=== PATIENT | male | born 1980 | race Caucasian/White ===

== ENCOUNTER → 2016-09-14 | Outpatient (REF) | payer OTHER | LOC: M LAB REF 11:59 | PROVIDERS: ATTEND Physician Assistant Medical | DX: J02.9 Acute pharyngitis, unspecified (principal) ==

== ENCOUNTER → 2017-01-15 | Outpatient (REF) | payer OTHER | LOC: M LAB REF 12:06 | PROVIDERS: ATTEND Family Medicine | DX: E78.5 Hyperlipidemia, unspecified (principal) ==

== ENCOUNTER → 2018-03-18 | Outpatient (REF) | payer OTHER ==
[2018-03-18 19:50] LABS: LIPASE 805 U/L (73-393)
[2018-03-18 19:50] LABS: AMYLASE 113 U/L (25-115)
== END ==
LOC: M LAB REF 17:43
DX: K85.90 Acute pancreatitis without necrosis or infection, unspecified (principal)

== ENCOUNTER 2019-12-07 08:50 | Emergency (ER) | payer OTHER ==
[~2019-12-07] VITALS: Ht 177.8 cm; Wt 130.7 kg
[2019-12-07] MEDS ORDERED: LEVO137T2 (08:57)
[2019-12-07] MEDS ORDERED: NS 1,000 ML IV ONE (09:30)
[2019-12-07] MEDS ORDERED: KETOROLAC 30 MG/ML 1ML VIAL IV ONE (09:30)
[2019-12-07 10:04] LABS: BASO # 0.1 10^3/uL (0.0-0.2); BASO % 0.4 % (0.0-1.0); EOS # 0.2 10^3/uL (0.0-0.5); EOS % 1.2 % (0.0-3.0); HEMATOCRIT 42.4 % (42.0-52.0); HEMOGLOBIN 13.8 g/dl (13.5-17.5); LYMPH # 1.3 10^3/uL (1.5-5.0); MEAN CORPUSCULAR HEMOGLOBIN 30.3 pg (27.0-33.0); MEAN CORPUSCULAR HGB CONC 32.5 g/dl (32.0-36.5); MONO # 1.2 10^3/uL (0.0-0.8); MONO % 8.9 % (0.0-5.0); NEUTROPHILS % 79.3 % (36.0-66.0); PLATELET COUNT, AUTOMATED 240 10^3/uL (150-450); RED BLOOD COUNT 4.56 10^6/uL (4.30-6.10); WHITE BLOOD COUNT 13.9 10^3/uL (4.0-10.0)
[2019-12-07 10:38] LABS: ALBUMIN 3.4 GM/DL (3.2-5.2); BILIRUBIN,DIRECT 0.3 MG/DL (0.0-0.2); BILIRUBIN,TOTAL 0.7 MG/DL (0.2-1.0); TOTAL PROTEIN 6.7 GM/DL (6.4-8.2)
[2019-12-07] MEDS ORDERED: LevoFLOXacin IV 500 MG in IV 1 EA IV ONE (12:15)
--- NOTE | 2019-12-07 13:29 | REP ---
SCROTAL ULTRASOUND: Real-time sonographic evaluation of scrotum and contents performed. Left testicle is mildly enlarged and hyperemic. Right testicle measures 4.3 x 2.6 x 3.0 cm, left testicle 4.5 x 3.3 x 3.0 cm. There is no testicular torsion bilaterally. There is a small septated hydrocele on the left. Left epididymis is diffusely enlarged and hyperemic. IMPRESSION: Findings compatible with left epididymitis and orchitis. Small septated left hydrocele. Electronically Signed by Mark Arias MD 12/07/2019 10:44 P
[2019-12-07 13:41] LABS: CHLAMYDIA DNA AMPLIFICATION NEGATIVE (NEGATIVE); GC DNA AMPLIFICATION NEGATIVE (NEGATIVE)
[2019-12-07] MEDS ORDERED: IBUP80TA PO (13:48)
[2019-12-07] MEDS ORDERED: LEVA1TAB2 PO (13:48)
[2019-12-07 13:58] VITALS: BP 119/80
== END 2019-12-07 14:01 | disposition home or self-care (01) ==
LOC: M ED 08:50
DX: N45.1 Epididymitis (principal); N45.2 Orchitis; K21.9 Gastro-esophageal reflux disease without esophagitis; E03.9 Hypothyroidism, unspecified; F17.290 Nicotine dependence, other tobacco product, uncomplicated; E66.9 Obesity, unspecified; Z79.899 Other long term (current) drug therapy
CPT/HCPCS: 76870; 80047; 80076; 81001; 83605; 85025; 87086; 87491; 87591; 93976; 96361; 96365; 96375; 99284; J1885; J1956

== ENCOUNTER → 2020-06-21 | Outpatient (REF) | payer OTHER ==
[~2020-06-21] MED LIST: IBUP80TA PO; LEVA1TAB2 PO; LEVO137T2
[2020-06-21 18:12] LABS: ALBUMIN 3.8 GM/DL (3.2-5.2); ALT/SGPT 55 U/L (12-78); BILIRUBIN,TOTAL 0.4 MG/DL (0.2-1.0); BLOOD UREA NITROGEN 19 MG/DL (7-18); CARBON DIOXIDE LEVEL 25 MEQ/L (21-32); CHLORIDE LEVEL 98 MEQ/L (98-107); CREATININE FOR GFR 1.21 MG/DL (0.70-1.30); FREE T4 0.65 NG/DL (0.76-1.46); GLOMERULAR FILTRATION RATE > 60.0 (>60); GLUCOSE, FASTING 316 MG/DL (70-100); POTASSIUM SERUM 4.4 MEQ/L (3.5-5.1); SODIUM LEVEL 133 MEQ/L (136-145); TOTAL PROTEIN 7.6 GM/DL (6.4-8.2)
== END ==
LOC: M LAB REF 16:26
PROVIDERS: ATTEND Family Medicine
DX: E78.5 Hyperlipidemia, unspecified (principal); I10 Essential (primary) hypertension; E03.9 Hypothyroidism, unspecified